=== PATIENT | male | born 1995 | race Two or more races ===

== ENCOUNTER 2018-10-02 21:56 | Emergency (ER) | payer OTHER ==
[2018-10-02] MEDS ORDERED: PROPOFOL INJ 200 MG/20 ML VIAL IV ONE ×2 (22:04→22:45)
[2018-10-02] MEDS ORDERED: NORMAL SALINE 1000 ML 1,000 ML IV ONE (22:04)
--- NOTE | 2018-10-02 22:43 | RADIOLOGY REPORT (SQ) ---
EXAM DESCRIPTION: XR ANKLE 2 VIEWS COMPLETED DATE/TME: 10/02/2018 22:03 CLINICAL HISTORY: 23 years Male, trauma COMPARISON: None. Findings: Acute oblique fracture of the distal right fibular diametaphysis with moderate lateral angulation. Curvilinear intra-articular lucency at the medial aspect of the right tibial plafond and suggests injury of indeterminate age. Moderate lateral subluxation of the talotibial joint. IMPRESSION: Acute fracture/subluxation of the right ankle.
--- NOTE | 2018-10-02 23:08 | ER Document Report ---
ED General - General Chief Complaint: Ankle Injury Stated Complaint: ANKLE PAIN Time Seen by Provider: 10/02/18 22:03 Notes: Patient is a pleasant 23-year-old male presents with complaint of injury to his right ankle. Patient says he was doing pull-ups on a bar that exited door frame. He says the bar jolted in the fall off the door frame and he laid down to his right ankle and it immediately popped and he felt severe pain. No numbness into the foot. Ankle is obviously deformed. Paramedics gave him fentanyl in route. - Related Data Allergies/Adverse Reactions: No Known Allergies Allergy (Verified 10/02/18 22:15) Past Medical History - Social History Smoking Status: Never Smoker Frequency of alcohol use: None Drug Abuse: None Family History: Reviewed & Not Pertinent Patient has suicidal ideation: No Patient has homicidal ideation: No Renal/ Medical History: Denies: Hx Peritoneal Dialysis Review of Systems - Review of Systems Notes: My Normal Review Basic REVIEW OF SYSTEMS: CONSTITUTIONAL : Denies fever, chills, or sweats. Denies recent illness. MUSCULOSKELETAL: Pain to right ankle. Denies pain to the knee or remainder of the leg. SKIN: Denies rash or skin lesions. NEUROLOGICAL: Denies sensory or motor loss. ALL OTHER SYSTEMS REVIEWED AND NEGATIVE. Physical Exam - Vital signs Vitals: Temp 98.5 F 10/02/18 22:06 - Notes Notes: General Appearance: Well nourished, alert, cooperative, no acute distress, no obvious discomfort. Vitals: reviewed, See vital signs table. Eyes: PERRL, EOMI, Conjuctiva clear Mouth: No decreasd moisture Lungs: No wheezing, No rales, No rhonci, No accessory muscle use, good air exchange bilaterally. Heart: Normal rate, Regular rythm, No murmur, no rub Extremities: Patient has obvious deformity to right ankle. No pain to palpation of the right knee or remainder of right lower leg. Patient has good dorsalis pedis and posterior tibial pulses in the right foot. He has good capillary refill. Good distal sensation in all toes. Skin: warm, dry, appropriate color, no rash Neuro: speech clear, oriented x 3, normal affect, responds appropriately to questions. Course - Re-evaluation Re-evalutation: 10/03/18 05:41 Patient was sedated with propofol. We did go over the risks and benefits of sedation prior to sedation and he agreed to go forward with sedation. Ankle is easily reduced with slight traction. I then placed the patient in a posterior and ankle stirrup splint. After splint was placed patient good capillary refill and good distal sensation. Patient tolerated sedation well. Patient did not had some recurrence of pain when he went to stand up with the crutches. I did give him another dose pain medicine and patient's pain is much improved. He still has good cap refill good sensation into the foot. Patient is feeling improved and will be discharged home. He will be referred to orthopedics. He strongly encouraged to return to ER if he has worsening pain, numbness or weakness in the foot, fevers, or if he feels unwell. Patient agrees with plan will be discharged home. Dictation of this chart was performed using voice recognition software; therefore, there may be some unintended grammatical errors. - Vital Signs Vital signs: Temp Pulse Resp BP Pulse Ox 98.5 F 60 20 133/60 H 96 10/02/18 22:06 10/02/18 23:11 10/03/18 01:01 10/03/18 01:01 10/03/18 01:01 Procedures - Conscious Sedation Conscious sedation Consent obtained: Yes Prior complications: Procedural sedation Normal healthy pt.: P1. - ASA Classification Airway Evaluation: Normal anatomy Mallampati Classification: Class 1 Used during procedure: Suction available, IV access obtained, Pulse ox on pt., air sampling and monitoring on pt. Medications administered: Diprivan I personally performed/intraservice time: Sedation, Procedure, 30 min or less Complications: No - Immobilization Right Ankle Pre-Proc Neuro Vasc Exam: Normal Immobilizer type: Ankle stirrup, Long leg posterior Performed by: Provider Post-Proc Neuro Vasc Exam: Normal Alignment checked and good: Yes - Joint Reduction/Fracture Care Right Ankle Consent obtained: Yes Conscious sedation: Yes Pre-procedure NV exam: Yes Fracture: Closed Manipulation comment: traction Post-procedure NV exam: Yes Post-reduction x-ray: Joint reduced Reduction attempts: 1 Complications: No Discharge - Discharge Clinical Impression: Ankle fracture, right Qualifiers: Encounter type: initial encounter Fracture type: closed Qualified Code(s): S82.891A - Other fracture of right lower leg, initial encounter for closed fracture Condition: Good Disposition: HOME, SELF-CARE Instructions: Oral Narcotic Medication ([facility]) Additional Instructions: Your splint has an Jd wrap around it. Sometimes you can have increased swelling in your arm which will cause a splint to be too tight. Please loosen the Jd wrap around the splint if you start having any increasing pain or swelling or numbness into your hand. Please return to ER immediately if you continue have these symptoms despite loosening the splint. Please do not bear weight on your ankle. Always use your crutches. Please call Dr. Crawford, orthopedist, for folow up appointment on Friday. Please be aware that [facility]any does have Tylenol (acetaminophen) in it. Please make sure you do not take more than 4000 mg of acetaminophen a day. Do not drive or care for children after you have taken this medication they will make you sleepy and sometimes impair judgment. PLease return to the ER immediately if you have intractable pain, fevers, numbness in your foot, or if you have any further concerns. Please keep leg and foot elevated on pillows when lying or sitting. Prescriptions: Hydrocodone/Acetaminophen [Bethany 5-325 mg Tablet] 1 tab PO Q4 PRN #10 tablet PRN Reason: For [employer] Pain Forms: Return to Work
--- NOTE | 2018-10-02 23:35 | RADIOLOGY REPORT (SQ) ---
CLINICAL HISTORY: post reduction COMPARISON: Earlier the same day. There is significant improved alignment of the distal fibula. TECHNIQUE: XR ANKLE 2 VIEWS 10/02/2018 11:05 PM GROUP CONTRACT ANALYST FINDINGS: There is no fracture. There is reduction of the tibiotalar subluxation. Soft tissues are unremarkable. IMPRESSION: Significantly improved alignment of the lateral malleolus fracture subluxation.
[2018-10-03] MEDS ORDERED: HYDROCODONE/ACETAMINOPHEN 5-325 MG (6 TAB/ER DISP) PO PRN (00:09)
[2018-10-03] MEDS ORDERED: HYDROMORPHONE HCL INJ/PF 2 MG/ML AMPULE IV ONE (00:13)
[2018-10-03 01:14] VITALS: BP 133/60
== END 2018-10-03 01:14 | disposition home or self-care (01) ==
LOC: ER 21:56
DX: S82.431A Displaced oblique fracture of shaft of right fibula, initial encounter for closed fracture (principal); W17.89XA Other fall from one level to another, initial encounter; Y93.B2 Activity, push-ups, pull-ups, sit-ups
CPT/HCPCS: 99283; 99153; 99152; 96374; 73600; 27788; J1170; J7030; J2704; 96361

== ENCOUNTER 2018-10-03 21:28 | Emergency (ER) | payer OTHER ==
[2018-10-03 21:39] VITALS: BP 134/50
--- NOTE | 2018-10-03 22:25 | ER Document Report ---
HPI - HPI Time Seen by Provider: 10/03/18 21:48 Pain Level: 4 Context: Patient is a 23-year-old male who presents to the emergency department with a chief complaint of right foot pain. He was diagnosed with a displaced ankle fracture yesterday and it was he states that he was lifting his left leg about 2 hours prior to arrival and he could feel his ankle was pulling apart. He took Sulphur at that time, but continues to have pain. He says the pain is mainly on the medial aspect of his foot. - CONSTITUTIONAL Constitutional: DENIES: Fever, Chills - NEURO Neurology: DENIES: Headache - RESPIRATORY Respiratory: DENIES: Trouble Breathing - GASTROINTESTINAL Gastrointestinal: DENIES: Abdominal Pain - MUSCULOSKELETAL Musculoskeletal: REPORTS: Extremity pain - rt ankle w/splint intact - DERM Skin Color: Normal Skin Problems: None Past Medical History - Social History Smoking Status: Never Smoker Chew tobacco use (# tins/day): No Frequency of alcohol use: None Drug Abuse: None Family History: Reviewed & Not Pertinent Patient has suicidal ideation: No Patient has homicidal ideation: No Renal/ Medical History: Denies: Hx Peritoneal Dialysis Vertical Provider Document - CONSTITUTIONAL Agree With Documented VS: Yes Exam Limitations: Other - cast in place - HEENT HEENT: Atraumatic - NECK Neck: Normal Inspection - RESPIRATORY Respiratory: No Respiratory Distress - CARDIOVASCULAR Cardiovascular: Regular Rate, Regular Rhythm Pulses: Normal: Dorsalis pedis Notes: unable to assess posterior tibial pulse due to cast in place < 3 second capillary refill noted to left toes - MUSCULOSKELETAL/EXTREMETIES Musculoskeletal/Extremeties: Tender - Right foot, Edema - mild right foot - NEURO Level of Consciousness: Awake, Alert, Appropriate - DERM Integumentary: Warm, Dry Course - Re-evaluation Re-evalutation: 10/03/18 22:53 Since the patient has not been taking ibuprofen, I suspect that he has some edema to the area I will give him 800 mg of ibuprofen here in the emergency department and he will add this to his pain management regimen. He will continue to follow-up with orthopedics on Friday. He is in agreement with this plan. I have a very low suspicion for compartment syndrome. He has a very good dorsalis pedis pulse in his right foot. Capillary refill is less that 3 seconds. Verbal discharge instructions were given to the patient. They verbalized understanding. They are stable for discharge. - Vital Signs Vital signs: Temp Pulse Resp BP Pulse Ox 97.3 F 80 24 H 134/50 H 98 10/03/18 21:35 10/03/18 21:35 10/03/18 21:35 10/03/18 21:35 10/03/18 21:35 Discharge - Discharge Clinical Impression: Ankle pain, right Qualifiers: Chronicity: acute Qualified Code(s): M25.571 - Pain in right ankle and joints of right foot Condition: Stable Disposition: HOME, SELF-CARE Additional Instructions: You were seen today in the emergency department for ankle pain. Continue to take the medications you have been prescribed from your visit yesterday to help with your pain. Motrin has been added to your pain regimen. You may take 1 tablet every 8 hours if you take the 800 mg Motrin. Please do not exceed 2400 mg in 24 hours. May take 600 mg every 6 hours or 400 mg every 4 hours, if that helps with your pain. Please continue to follow-up with orthopedics and use your crutches. If you develop a fever, worsening symptoms, or have any symptoms that are worrisome to you, please return to the emergency department. Prescriptions: Ibuprofen [Motrin 800 mg Tablet] 800 mg PO Q8H PRN #30 tab PRN Reason:
[2018-10-03] MEDS ORDERED: IBUPROFEN 800 MG TABLET PO ONE (22:41)
== END 2018-10-03 23:05 | disposition home or self-care (01) ==
LOC: ER 21:28
DX: M25.571 Pain in right ankle and joints of right foot (principal)
CPT/HCPCS: 99283